=== PATIENT | female | born 1980 | race Caucasian/White ===

== ENCOUNTER → 2018-08-08 | Outpatient (CLI) | payer MEDICAID | LOC: FIMAGING 13:14 | PROVIDERS: ATTEND Advanced Practice Midwife | DX: O36.4XX1 Maternal care for intrauterine death, fetus 1 (principal); Z3A.01 Less than 8 weeks gestation of pregnancy ==

== ENCOUNTER 2018-08-12 07:31 | Day surgery (SDC) | payer MEDICAID ==
[2018-08-12] MEDS ORDERED: DOXYCYCLINE HYCLATE 100 MG CAP/TAB PO ONE ×2 (07:50→08:03)
[2018-08-12] MEDS ORDERED: LR 1,000 ML IV ONE (07:50)
--- NOTE | 2018-08-12 07:54 | PDGENHP ---
History and Physical History and Physical: HPI: Patient is a 38 y/o who presents today for a D & C after missed AB. Her LMP was 05/30/18 - was seen in our office for new OB visit at 8.5 weeks ega based on LMP and found to have gestational sac measuring 6.2 weeks ega with no fhts visible. F/U ultrasound 9 days later (08/08/18) revealed GS at 8 weeks ega with not pole c/w blighted ovum. Patient was counseled at that time about expectant management, medical management vs surgical management. Originally her plan was to do expectant management for a few weeks, but ultimately changed her mind and requested a D&C. Review of Systems: Constitutional: Denies any fever, chills, or fatigue HEENT: denies any visual changes, difficulty swallowing, hearing loss Cardiovascular: Denies any chest pain, palpitations, leg swelling Respiratory: denies any cough, wheezing, or shortness of breathe GI: Denies any nausea, vomiting, diarrhea, constipation : denies any dysuria, urgency, frequency, vaginal bleeding Musculoskeletal: denies any muscle or bone pain Skin: denies any rashes Neuro: denies any headache, seizures, lightheadedness, dizziness, or loss of consciousness Psychiatric: denies any depression, anxiety, or SI/HI thoughts HISTORY: Previous OB history: X4 Past medical history: Ganglion cyst - right hand Past surgical history: right breast biopsy Medications: PNV Allergies (list reaction): NKDA LABS: Rh: O pos ABS: Neg PHYSICAL EXAM: Constitutional: WN, A&Ox3 HEENT: normocephalic atraumatic, supple Heart: RRR, no murmur Chest: CTA-B Abdomen: Soft, nontender, gravid Extremities: no edema, negative callum's sign Neuro: grossly normal Psych: normal affect Assessment: 1) 38 yo G 5 P 4 with blighted ovum - gest sac size 8 weeks ega - requests D& C. Has been NPO since midnight. Plan: 1) Admit to L&D 2) Proceed with D & C per Dr Sydney Hernandez.
--- NOTE | 2018-08-12 08:19 | PDHPUP ---
History & Physical Update H&P update statement: This history and physical update is based on an assessment of the patient which was completed after admission or registration (within 24 hours), but prior to the surgery/procedure. H&P update: H&P reviewed & patient examined, no change in patient's condition since H&P completed
[2018-08-12] MEDS ORDERED: fentaNYL 100 MCG/2 ML INJ IVP PRN (08:21)
[2018-08-12] MEDS ORDERED: oxyCODONE IR 5 MG TAB PO PRN (08:21)
[2018-08-12] MEDS ORDERED: PROMETHAZINE HCL 25 MG/ML INJ IVP PRN (08:21)
[2018-08-12] MEDS ORDERED: DEXAMETHASONE 4 MG/ML VIAL IVP PRN (08:21)
[2018-08-12] MEDS ORDERED: HYDROmorphONE/DILAUDID 2 MG/ML INJ IVP PRN (08:21)
[2018-08-12] MEDS ORDERED: NALOXONE HCL 0.4 MG/ML INJ IVP PRN (08:21)
[2018-08-12] MEDS ORDERED: MIDAZOLAM 2 MG/2 ML VIAL IVP ONE (08:21)
[2018-08-12] MEDS ORDERED: ONDANSETRON 4 MG/2 ML VIAL IVP PRN (08:21)
[2018-08-12] MEDS ORDERED: ACETAMINOPHEN 500 MG TAB PO PRN (08:21)
[2018-08-12] MEDS ORDERED: ALBUTEROL 3 ML DEYVIAL IH PRN (08:21)
--- NOTE | 2018-08-12 08:23 | PDANEPAE ---
ANE History of Present Illness D&C ANE Past Medical History - Cardiovascular History Hx Hypertension: No Hx Arrhythmias: No - Pulmonary History Hx Asthma/Reactive Airway Disease: No ANE Review of Systems Review of Systems: - Exercise capacity Exercise capacity: >=4 METS ANE Patient History - Allergies Allergies/Adverse Reactions: No Known Allergies Allergy (Unverified 11/16/14 12:42) - Smoking Hx Smoking Status: Never smoked ANE Physical Exam - Airway Neck exam: FROM Mallampati Score: Class 2 Mouth exam: normal dental/mouth exam - Pulmonary Pulmonary: clear to auscultation - Cardiovascular Cardiovascular: regular rate and rhythym - ASA Status ASA Status: II ANE Anesthesia Plan Anesthesia Plan: GA w LMA
[2018-08-12] MEDS ORDERED: PROPOFOL 200 MG/20 ML VIAL ONE (08:38)
[2018-08-12] MEDS ORDERED: DEXAMETHASONE 4 MG/ML VIAL ONE (08:39)
[2018-08-12] MEDS ORDERED: fentaNYL 100 MCG/2 ML INJ ONE (08:39)
[2018-08-12] MEDS ORDERED: ONDANSETRON 4 MG/2 ML VIAL ONE (08:39)
--- NOTE | 2018-08-12 09:37 | POSTOPPROG ---
Post Op Note Date of Operation: 08/12/18 Surgeon: Sydney Hernandez Crochet Beader: None Anesthesiologist: Ryan Valdez Anesthesia: LMA (GA with LMA) Pre-op Diagnosis: Blighted ovum at 6 weeks Post-op Diagnosis: Blighted ovum at 6 weeks Indication: 38 y/o @ 8 5/7 wks w/ blighted ovum @ 6 2/7 wks; no VB; desires sx Procedure: Suction D&C under u/s guidance Findings: Uterus sounded to 9 cm; multip os; no active VB noted; mod amount POCs Inf/Abcess present in the surg proc area at time of surgery?: No Depth: Organ Space EBL: 50-100 (50cc) Total fluids administered: 800cc LR UO: pt empted bladder prior to OR Complications: None Specimen(s): POCs
[2018-08-12 11:26] VITALS: BP 95/72
--- NOTE | 2018-08-12 11:27 | GOP ---
[f rep st] OPERATIVE REPORT DATE OF OPERATION: 08/12/2018 SURGEON: Sydney Hernandez DO MATERIAL WORKER: None. ANESTHESIA: General anesthesia with LMA. ANESTHESIOLOGIST: Ryan Valdez DO PREOPERATIVE DIAGNOSIS: Blighted ovum at 8 weeks. POSTOPERATIVE DIAGNOSIS: Blighted ovum at 8 weeks. PROCEDURE PERFORMED: Suction dilation and curettage under u/s guidance. FINDINGS: Uterus sounded to 9 cm. There was no active bleeding noted. Multiparous cervix that was dilated to about 1 cm. A moderate amount of products of conception noted. A #8 curved suction curette was used. Patient is O positive, no RhoGAM is needed. SPECIMENS: Products of conception. ESTIMATED BLOOD LOSS: 50cc. INDICATIONS: Patient is a 38-year-old, 5, para 4-0-0-4 at 8 weeks 5 days by LMP 05/29/18 who presented to the midwifery office for her initial OB visit. She had an ultrasound that showed gestational sac only measuring 6 weeks 2 days, with no heartbeat. Followup ultrasound 9 days later showed gestational sac at 8 weeks with no pole and no heartbeat consistent with blighted ovum. The patient is asymptomatic at this time without any cramping, abdominal pain, or vaginal bleeding. Her original plan was expectant management but she changed her mind and is requesting surgery, suction D and C. Surgical consents were obtained with the patient at the bedside. Discussed risks, including, but not limited to, bleeding, infection, damage to surrounding organs, and risk of uterine perforation. The patient understands all risks at this time and wants to proceed with surgery. DESCRIPTION OF PROCEDURE: The patient was taken to the operating room where general anesthesia was obtained without difficulty. The patient was then positioned in dorsal lithotomy position, and prepped and draped in normal sterile fashion. After WHO time-out was performed, an open speculum was placed in the vagina. The anterior lip of the cervix was grasped with an Allis clamp and the uterus was gently sounded to 9 cm. Although the cervix was dilated to 1 cm, it was serially dilated up to a #8-1/2 Hegar. Then, a curved size 8 suction curette was used, it was connected to suction, and then placed in the cervix gently, and a suction curettage was performed multiple times with moderate amount of tissue obtained. Next, we turned our attention to a sharp curettage. This was performed in all 4 quadrants of the uterus obtaining just a small amount of tissue. This was done under ultrasound guidance until a thin stripe was noted. One last pass with the suction curette was done to make sure all remaining products of conception were removed. All instruments were then removed from the vagina. Cervix was hemostatic and there was no bleeding noted. Patient tolerated procedure well. No complications. All lap, sponge and instrument counts correct x2. The patient was then awakened, taken out of dorsal lithotomy position, and taken to PACU in stable condition. The patient was given oral doxycycline prior to the procedure and then will receive another dose in the PACU. Patient is O positive, and no RhoGAM is needed. IV FLUIDS: 800 cc LR. URINE OUTPUT: Patient emptied her bladder prior to coming back to the operating room. /[id number]/MODL MTDD
--- NOTE | 2018-08-12 13:23 | POSTANESTH ---
Post Anesthetic Evaluation Cardiovascular Status: Normal, Stable Respiratory Status: Normal, Stable Level of Consciousness/Mental Status: Can Participate in Eval, Alert and Oriented Pain Control: Adequate, Prn Tx Ordered Nausea/Vomiting Control: Adequate, Prn Tx Ordered Complications Possibly Related to Anesthesia: None Noted
== END 2018-08-12 11:35 | disposition home or self-care (01) ==
LOC: FOBOP 07:31
PROVIDERS: ATTEND Obstetrics & Gynecology
PROC: 10D17ZZ Extraction of Products of Conception, Retained, Via Natural or Artificial Opening (ICD-10-PCS; principal; 2018-08-12)
DX: O02.1 Missed abortion (principal)
CPT/HCPCS: J1100; J2250; J2405; J2704; J3010; J7613